=== PATIENT | male | born 1970 | race Caucasian/White ===

== ENCOUNTER 2016-09-27 13:17 | Emergency (ER) | payer OTHER ==
[~2016-09-27] VITALS: Ht 167.6 cm; Wt 93.2 kg
[~2016-09-27 13:17] MED LIST: METO50TA PO; OMPR20CCR PO; ZIT250 PO
[2016-09-27 13:19] VITALS: BP 166/100; PULSE 69; RESP 15; O2SAT 97
--- NOTE | 2016-09-27 13:30 | ED.REPORT ---
HPI-General Illness Date of Service Sep 27, 2016 ED Provider: Jalen Ramos PA-C Joel is an otherwise healthy 46-year-old male presents with a chief complaint of a fingertip laceration. He states he struck his left index finger with a meat acts prior to presentation. He was seen at urgent care and referred to the emergency department. X-rays taken and reveal a tuft fracture. Denies DM, HIV, immunosuppression. Patient is right handed. States he had a tetanus shot 4 years ago in 2012. Nursing Notes Stated Complaint: LEFT INDEX FINGER LACERATION/L AND I Chief Complaint: Laceration Nursing Notes Reviewed: Yes Allergies: Coded Allergies: No Known Allergies (Verified Allergy, Unknown, 09/27/16) Scheduled Azithromycin (Zithromax) 250 Mg Tablet 250 MG PO DAILY Cephalexin (Keflex) 500 Mg Capsule 500 MG PO QID Metoprolol Tart-Expunged Drug, Do Not Renew! (Metoprolol Tart-Expunged Drug, Do Not Renew!) 50 Mg Tablet 25 MG PO DAILY Omeprazole-Expunged Drug, Do Not Renew! (Omeprazole-Expunged Drug, Do Not Renew! ) 20 Mg Capsule.dr 20.6 MG PO DAILY Sulfamethoxazole/Trimeth 800-160 mg (Bactrim DS 800-160 mg) 1 Each Tablet 1 TABLET PO BID Scheduled PRN Hydrocodone-Acetaminophen 5-325 mg (Hydrocodone-Acetaminophen 5-325 mg) 1 Each Tablet 1-2 TABLET PO Q4H PRN PRN For Pain General Time Seen by MD: 13:25 Chief Complaint Laceration Past Medical History Past Medical History Denies Past Surgical History Denies Smoking History Former Smoker Social History Other Social History: Good social support Ambulatory Status Independent Review of Systems Negative unless stated otherwise in history of present illness Physical Exam General: Well appearing, well developed, well nourished, no acute distress. Right index finger: 2 cm laceration along the distal edge of the nail bed. Projects roughly 5 mm into the pulp. Small amount of apparently devitalized tissue. Full range of motion and MCP DIP and PIP joints. Sensation reduced at the tip of the finger, intact proximal. Nail is firmly affixed to the nailbed. Head: Atraumatic, normocephalic. Eyes: No scleral icterus or injection. No discharge. Vision grossly intact. ENT: Voice clear, hearing grossly intact. Respiratory: No respiratory distress, no increased work of breathing. Speaks in complete sentences. Skin: Warm and dry. Neurological: Grossly nonfocal. Psychological: alert and oriented. Speech appropriate, linear and logical. Behavior appropriate. Vital Signs Vital Signs Date Time Temp Pulse Resp B/P Pulse Ox O2 Delivery O2 Flow Rate FiO2 09/27/16 15:36 75 15 157/106 95 Room Air 09/27/16 13:19 36.7 69 15 166/100 97 Room Air Initial VS: Vital signs abnormal (elevated blood pressure) Procedures Laceration Management Time: 14:58 Procedure Performed by: Allied health pract Wound Length: 2 cm Local Anesthesia: Lidocaine 1% Digital Block: Yes Digit Involved: Index finger right Wound Preparation: Betadine, Normal saline Debridement: None Irrigation: Copious Foreign Body Explore / Removal: Explored for foreign body Repair Skin: Nylon (5-0) # Sutures - Skin: 5 Suture Technique: Simple Post-Procedure / Complications: Antibiotic oint applied, Dressing applied ( gauze and splint, wrapped with Coban), No complications, Condition improved, Tolerated procedure well, Patient stable Re-Eval/Medical Decision Med Decision/Clinical Course Otherwise healthy 46-year-old male referred from urgent care for laceration to his distal left index finger. States he struck it with a pneumatic chisel tool. CT is up-to-date on tetanus. Denies comorbidities. Physical examination reveals a deep one similar laceration parallel to the distal edge of the nailbed. The fingernail is firmly attached. X-rays indicate a distal tuft fracture. Discussed case with Dr. Beasley who met with and examined the patient. He recommends soaking with Betadine, irrigated the wound, closing loosely, dressing with a splint and discharging with Bactrim and Keflex for consideration for the technically open fracture. I treated accordingly, and consulted Dr. Gonsalves, who agrees with the plan and will see the patient in clinic in the next day or 2. Discharged with antibiotics prescriptions as well as a small amount of hydrocodone. Vitamins orthopedic follow-up instructions, emergency return precautions. Patient understands and agrees with plan. Discharge & Departure Primary Impression: Laceration Additional Impression: Elevated blood pressure Disposition: Home Discharge Condition All VS Reviewed: Yes Condition: Stable Patient Instructions: Suture Care (ED) Additional Instructions: Evaluation in the emergency department for a laceration. This is technically a open fracture, so we will treat you with 2 kinds of antibiotics. I will prescribe Keflex 500 mg to be taken 4 times a day as well as Bactrim DS to be taken twice a day. Take both of these for one week. You have told me that you are up-to-date on your tetanus shot. We have cleaned, sutured and dressed the wound with a splint, antibiotic ointment and gauze. Please leave this dressing on and dry for the next 24 hours. After that you can remove the dressing, clean with soap and water and then reapply antibiotic ointment and gauze or Band-Aid. Please do not submerge the wound as in washing dishes, swimming or soaking in a tub until you have the sutures removed. The pain is best treated with 400 mg of ibuprofen (Advil, Motrin) every 6 hours , or 1000 mg of acetaminophen (Tylenol) every 6 hours. These drugs can be taken at the same time for more severe pain. I will write a prescription for a small amount hydrocodone/acetaminophen. you can substitute this for the Tylenol for more severe pain. Please do not drive or drink alcohol within 2 hours of taking this medication. Be vigilant for signs of infection. While a small amount of redness, tenderness and clear or pink drainage is normal, any increasing pain, redness, swelling or the appearance of pus suggests infection. More severe infection as suggested by symptoms such as fever, chills, feeling ill, racing heart. Please return to emergency Department if you notice signs of infection. I will provide referral for orthopedic follow-up with Dr. Gonsalves. Please contact his office tomorrow to arrange follow-up in the next couple of days. Referrals: Reinaldo Gonsalves MD EDSupervising Provider for [facility]: Yimi Zaragoza DO Attending Statement I have seen and examined the patient. I have reviewed the chart and agree with the documentation as recorded by the Midlevel Provider, including assessment, treatment plan, and disposition. Findings from my exam are included in documentation above. copies to: Reinaldo Gonsalves MD, Seth PA-C Sep 27, 2016 13:30 Yimi Zaragoza DO Sep 28, 2016 09:01
[2016-09-27] MEDS ORDERED: HYDROcodone-APAP 5-325 mg Tablet PO ONE (13:35)
[2016-09-27] MEDS ORDERED: HYDR-4003 PO (15:25)
[2016-09-27] MEDS ORDERED: CEPH-512 PO (15:25)
[2016-09-27] MEDS ORDERED: SULF1TAB35 PO (15:25)
[2016-09-27 15:36] VITALS: BP 157/106; PULSE 75; RESP 15; O2SAT 95
== END 2016-09-27 15:25 | disposition home or self-care (01) ==
LOC: SED 13:17
DX: S61.211A Laceration without foreign body of left index finger without damage to nail, initial encounter (principal); W26.0XXA Contact with knife, initial encounter; Y93.89 Activity, other specified; Y92.69 Other specified industrial and construction area as the place of occurrence of the external cause; Y99.0 Civilian activity done for income or pay; R03.0 Elevated blood-pressure reading, without diagnosis of hypertension; Z87.891 Personal history of nicotine dependence